=== PATIENT | male | born 1990 | race American Indian/Alaskan Native ===

== ENCOUNTER 2020-03-05 02:59 | Inpatient (IN) | payer SELFPAY ==
[2020-03-05 03:58] LABS: Basophils # (Auto) 0.1 K/mm3 (0.0-0.1); Basophils % (Auto) 0.9 % (0.0-1.8); Eosinophils # (Auto) 0.2 K/mm3 (0.0-0.4); Eosinophils % (Auto) 1.8 % (0.0-4.3); Hematocrit 43.1 % (35.5-45.6); Hemoglobin 14.9 gm/dl (11.8-15.2); Lymphocytes # (Auto) 2.9 K/mm3 (1.2-5.4); Lymphocytes % (Auto) 28.3 % (13.4-35.0); Mean Corpuscular HGB Conc 34 % (32-34); Mean Corpuscular Volume 93 fl (84-94); Monocytes # (Auto) 0.7 K/mm3 (0.0-0.8); Monocytes % (Auto) 7.3 % (0.0-7.3); Platelet Count 260 K/mm3 (140-440); Red Blood Count 4.62 M/mm3 (3.65-5.03); Red Cell Distribution Width 15.5 % (13.2-15.2)
[2020-03-05 04:06] LABS: BUN/Creatinine Ratio 8; Blood Urea Nitrogen 6 mg/dL (9-20); Calcium 9.2 mg/dL (8.4-10.2); Hemolysis Index 5
--- NOTE | 2020-03-05 04:12 | Emergency Department Report ---
ED GI Bleed HPI - General Chief complaint: GI Bleed Stated complaint: RECTAL BLEEDING Time Seen by Provider: 03/05/20 04:08 Source: patient Mode of arrival: Ambulatory Limitations: No Limitations - History of Present Illness Initial comments: Patient is a 30-year-old male that presents emergency room with complaints of bright red blood per rectum. Patient states that he has been having melena for about 6 months. Patient states that tonight he had a large amount of bright red blood come from his rectum while laying in bed. Patient states that it went down his legs and stained his sheets dramatically. Patient states he is having epigastric pain. Patient states he consumes alcohol every day. Patient states he has not been seen for his melena has been going on for 6 months by GI or primary care. 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 Patient states it is a 1-2 out of 10. Patient denies rectal pain. -: Sudden Location: epigastric Radiation: none Severity scale (0 -10): 2 Quality: burning Consistency: constant Improves with: rest Worsens with: eating, other Context: alcohol abuse Associated Symptoms: abdominal pain. denies: nausea, vomiting, epistaxis, fever/chills, headaches, loss of appetite, malaise, easy bruising, rash, shortne ss of breath, syncope, weakness - Related Data Allergies Allergy/AdvReac Type Severity Reaction Status Date / Time No Known Allergies Allergy Verified 03/05/20 05:05 ED Review of Systems ROS: Stated complaint: RECTAL BLEEDING Other details as noted in HPI Constitutional: denies: chills, fever Eyes: denies: eye pain, eye discharge, vision change ENT: denies: ear pain, throat pain Respiratory: denies: cough, shortness of breath, wheezing Cardiovascular: denies: chest pain, palpitations Endocrine: no symptoms reported Gastrointestinal: as per HPI, abdominal pain, melena, other. denies: nausea, diarrhea Genitourinary: denies: urgency, dysuria Musculoskeletal: denies: back pain, joint swelling, arthralgia Skin: denies: rash, lesions Neurological: denies: headache, weakness, paresthesias Psychiatric: denies: anxiety, depression Hematological/Lymphatic: denies: easy bleeding, easy bruising ED Past Medical Hx - Past Medical History Previous Medical History?: No - Surgical History Past Surgical History?: No - Family History Family history: no significant - Social History Smoking Status: Current Every Day Smoker Substance Use Type: Alcohol, Marijuana ED Physical Exam - General Limitations: No Limitations General appearance: alert, in no apparent distress - Head Head exam: Present: atraumatic, normocephalic - Eye Eye exam: Present: normal appearance - ENT ENT exam: Present: mucous membranes moist - Neck Neck exam: Present: normal inspection - Respiratory Respiratory exam: Present: normal lung sounds bilaterally. Absent: respiratory distress - Cardiovascular Cardiovascular Exam: Present: regular rate, normal rhythm. Absent: systolic murmur, diastolic murmur, rubs, gallop - GI/Abdominal GI/Abdominal exam: Present: soft, normal bowel sounds. Absent: distended, tenderness, guarding - Rectal Rectal exam: Present: normal rectal tone, heme (+) stool, black stool, bloody stool - Extremities Exam Extremities exam: Present: normal inspection - Back Exam Back exam: Present: normal inspection - Neurological Exam Neurological exam: Present: alert, oriented X3 - Psychiatric Psychiatric exam: Present: normal affect, normal mood - Skin Skin exam: Present: warm, dry, intact, normal color. Absent: rash ED Course Vital Signs 03/05/20 03/05/20 03:07 04:09 Temperature 98.2 F Pulse Rate 74 72 Respiratory 18 17 Rate Blood Pressure 122/77 Blood Pressure 124/94 [Right] O2 Sat by Pulse 94 97 Oximetry - Reevaluation(s) Reevaluation #1: I discussed all results with patient. I discussed plan of care with patient. Patient agrees with plan of care and admission. Patient to be admitted to the hospitalist service. 03/05/20 05:02 - Consultations Consultation #1: I discussed case with GI, Dr. BROWNING. Dr. BROWNING recommends admission to the hospitalist service and he will see the patient in the morning, n.p.o. now. 03/05/20 04:45 Consultation #2: Hospitalist consulted for admission. Hospitalist to admit patient. 03/05/20 05:02 ED Medical Decision Making - Lab Data Result diagrams: 03/05/20 03:32 03/05/20 03:32 - Medical Decision Making Patient is a 30-year-old male that presents emergency room with chronic melena this been going on for 6 months and tonight he developed copious amounts of bright red blood per rectum. Patient states that he has not seen anybody for the melena. Patient states that there was a large amount of blood. Patient had a rectal exam done and it shows melena and bright red blood and guaiac positive. Patient is labs are essentially unremarkable. GI was consulted and recommendations received. Recommendations were placed in the system. Consult was placed. Patient admitted to the hospitalist service. Patient will remain n.p.o. - Differential Diagnosis GI bleed, PRBPR, gastritis, alcoholism, abdominal pain Critical Care Time: Yes Critical care time in (mins) excluding proc time.: 35 Critical care attestation.: If time is entered above; I have spent that time in minutes in the direct care of this critically ill patient, excluding procedure time. Critical Care Time: 35 minutes ED Disposition Clinical Impression: Melena, BRBPR (bright red blood per rectum) Gastritis Qualifiers: Gastritis type: alcoholic Chronicity: acute Gastritis bleeding: with bleeding Qualified Code(s): K29.21 - Alcoholic gastritis with bleeding UTI (urinary tract infection) Qualifiers: Urinary tract infection type: acute cystitis Hematuria presence: without hematuria Qualified Code(s): N30.00 - Acute cystitis without hematuria Disposition: 09 OP ADMIT IP TO THIS HOSP Is pt being admited?: Yes Does the pt Need Aspirin: No Condition: Critical Time of Disposition: 05:03
[2020-03-05 04:18] LABS: Bilirubin,Urine NEG (Negative); Blood,Urine SM (Negative); Color,Urine Yellow (Yellow); Protein,Urine <15 mg/dL mg/dL (Negative)
[2020-03-05] MEDS ORDERED: cefTRIAXone/NS 2 GM/100 ML 2 GM/100 ML BAG IV ONE ×2 (05:01→10:47)
[2020-03-05 05:19] LABS: Alanine Aminotransferase 12 units/L (7-56); Albumin 4.5 g/dL (3.9-5)
[2020-03-05 05:24] LABS: Bilirubin,Direct < 0.2 mg/dL (0-0.2)
[2020-03-05 05:26] LABS: Partial Thromboplastin Time 37.4 Sec. (24.2-36.6)
[2020-03-05] MEDS ORDERED: PANTOPRAZOLE 80 MG in SODIUM CHLORIDE 0.9% 100 ML IV SCH (06:00)
[2020-03-05] MEDS ORDERED: SODIUM CHLORIDE 0.9% 1000 ML 1,000 ML ONE (06:11)
[2020-03-05] MEDS ORDERED: SODIUM CHLORIDE 0.9% 1000 ML 1,000 ML IV SCH (06:15)
[2020-03-05] MEDS ORDERED: ONDANSETRON 4 MG/2 ML INJ IV PRN (06:19)
[2020-03-05] MEDS ORDERED: ACETAMINOPHEN 325 MG TAB PO PRN (06:19)
--- NOTE | 2020-03-05 06:25 | History and Physical Report ---
History of Present Illness History of present illness: 30-year-old male with no medical problem comes emergency room for evaluation. He stated that he has blood per rectum tonight prompting him to come to the emergency room for evaluation. His first episode started 6 months ago and since then he has 1 episode every 2 to 3 weeks, usually with bowel movements. Tonight blood per rectum started while he was in bed. He denies melena, NSAID use. Patient will be admitted for GI bleed Review Of Systems: Constitutional: no weight loss, fever, chills Ears, eyes, nose, mouth and throat: no nasal congestion, no nasal discharge, no sinus pressure, blurry vision, diplopia Neck: No neck pain or rigidity. Cardiovascular: No palpitations, chest pain Respiratory: No shortness of breath, cough Gastrointestinal: No abdominal pain Genitourinary : no dysuria, frequency Musculoskeletal: no muscle ache , joint pain Integumentary: no rash, no pruritis Neurological: no parathesias, focal weakness Endocrine: no cold or heat intolerance, no polyuria or polydipsia Hematologic/Lymphatic: no easy bruising, no easy bleeding, no gland swelling Allergic/Immunologic: no urticaria, no angioedema. PAST MEDICAL HISTORY: None PAST SURGICAL HISTORY: None SOCIAL HISTORY: +alcohol, Deniestobacco, drugs FAMILY HISTORY: Hypertension Medications and Allergies Allergies Allergy/AdvReac Type Severity Reaction Status Date / Time No Known Allergies Allergy Verified 03/05/20 05:05 Home Medications Medication Instructions Recorded Confirmed Last Taken Type levoFLOXacin [Levaquin TAB] 500 mg PO QDAY #5 tablet 03/05/20 Unknown Rx Active Meds: Active Medications Acetaminophen (Tylenol) 650 mg PO Q4H PRN PRN Reason: Pain MILD(1-3)/Fever >100.5/GONZALEZ Pantoprazole Sodium 80 mg/ (Sodium Chloride) 100 mls @ 10 mls/hr IV DIRECT [facility] Last Admin: 03/05/20 05:48 Dose: 8 mg/hr, 10 mls/hr Documented by: Sodium Chloride (Nacl 0.9% 1000 Ml) 1,000 mls @ 150 mls/hr IV DIRECT [facility] Last Admin: 03/05/20 06:16 Dose: 150 mls/hr Documented by: Ondansetron HCl (Zofran) 4 mg IV Q8H PRN PRN Reason: Nausea And Vomiting Sodium Chloride (Sodium Chloride Flush Syringe 10 Ml) 10 ml IV BID [facility] Sodium Chloride (Sodium Chloride Flush Syringe 10 Ml) 10 ml IV PRN PRN PRN Reason: LINE FLUSH Exam - Physical Exam Narrative exam: Gen. appearance: Patient lying in bed, no apparent distress HEENT: Normocephalic, atraumatic, pupils equally round and reactive to light, extraocular movement intact, and no sclericterus,. No JVD or thyromegaly or nodule,neck supple, no carotid bruit ,mucous membranes moist, no exudate or erythema Heart: S1, S2, regular rate and rhythm Lungs: Clear bilaterally, breathing comfortable Abdomen: Positive bowel sounds, nontender, nondistended, no organomegaly Extremity: no edema, cyanosis, clubbing Skin: No rash, nodules, warm, dry Neuro: Cranial nerves II to XII intact, speech is fluent, moves extremities, sensory intact - Constitutional Vitals: Temp Pulse Resp BP Pulse Ox 98.2 F 70 15 116/74 98 03/05/20 03:07 03/05/20 05:49 03/05/20 05:49 03/05/20 05:49 03/05/20 05:49 Results - Labs CBC & Chem 7: 03/05/20 07:03 03/05/20 07:03 Labs: Abnormal lab results 03/05/20 03/05/20 03/05/20 Range/Units 03:32 03:32 04:05 RDW 15.5 H (13.2-15.2) % APTT (24.2-36.6) Sec. BUN 6 L (9-20) mg/dL Urine WBC (Auto) 21.0 H (0.0-6.0) /HPF 03/05/20 Range/Units 04:44 RDW (13.2-15.2) % APTT 37.4 H (24.2-36.6) Sec. BUN (9-20) mg/dL Urine WBC (Auto) (0.0-6.0) /HPF - Imaging and Cardiology EKG: image reviewed Assessment and Plan Assessment GI bleed Most likely secondary to hemorrhoids Patient was started on Protonix drip Check hemoglobin, consult GI UTI start IV Rocephin, follow cultures DVT prophylaxis
[2020-03-05 07:16] LABS: Basophils # (Auto) 0.1 K/mm3 (0.0-0.1); Basophils % (Auto) 0.7 % (0.0-1.8); Eosinophils # (Auto) 0.2 K/mm3 (0.0-0.4); Hematocrit 40.6 % (35.5-45.6); Hemoglobin 13.8 gm/dl (11.8-15.2); Lymphocytes # (Auto) 2.8 K/mm3 (1.2-5.4); Lymphocytes % (Auto) 30.7 % (13.4-35.0); Mean Corpuscular HGB Conc 34 % (32-34); Mean Corpuscular Volume 93 fl (84-94); Monocytes # (Auto) 0.7 K/mm3 (0.0-0.8); Monocytes % (Auto) 7.3 % (0.0-7.3); Platelet Count 244 K/mm3 (140-440); Red Blood Count 4.35 M/mm3 (3.65-5.03); Red Cell Distribution Width 15.6 % (13.2-15.2)
[2020-03-05 07:28] LABS: BUN/Creatinine Ratio 9; Blood Urea Nitrogen 6 mg/dL (9-20); Calcium 8.9 mg/dL (8.4-10.2); Hemolysis Index 8
--- NOTE | 2020-03-05 13:59 | Event Note ---
Date: 03/05/20 Patient with bright red blood per rectum. GI to see. H/H stable.
--- NOTE | 2020-03-05 14:55 | Gastroenterology Consultation ---
History of Present Illness - Reason for Consult Consult date: 03/05/20 hematochezia Requesting physician: LYNSEY HENSON III - History of Present Illness The patient is a 30 yo aam who presents with hematochezia. he has had intermittent scant hematochezia in the past every few weeks. however, had worsening dark maroon blood per rectum yesterday/overnight which led to ED arrival. Denies abd pain or constipation/straining. weight stable. no bowel habit changes. Denies family h/o colon cancer. no further bleeding episodes rest of the day and H/H has remained normal with stable vitals. Past History Past Medical History: No medical history Past Surgical History: No surgical history Social history: no significant social history Medications and Allergies Allergies Allergy/AdvReac Type Severity Reaction Status Date / Time No Known Allergies Allergy Verified 03/05/20 05:05 Home Medications Medication Instructions Recorded Confirmed Last Taken Type No Known Home Medications [No 03/05/20 03/05/20 Unknown History Reported Home Medications] Active Meds: Active Medications Acetaminophen (Tylenol) 650 mg PO Q4H PRN PRN Reason: Pain MILD(1-3)/Fever >100.5/GONZALEZ Pantoprazole Sodium 80 mg/ (Sodium Chloride) 100 mls @ 10 mls/hr IV DIRECT S Last Admin: 03/05/20 05:48 Dose: 8 mg/hr, 10 mls/hr Documented by: Sodium Chloride (Nacl 0.9% 1000 Ml) 1,000 mls @ 150 mls/hr IV DIRECT [facility] Last Admin: 03/05/20 06:16 Dose: 150 mls/hr Documented by: Ceftriaxone Sodium (Rocephin/Ns 1 Gm/50 Ml) 1 gm in 50 mls @ 100 mls/hr IV Q24HR [facility]; Protocol Last Admin: 03/05/20 10:55 Dose: 100 mls/hr Documented by: Ondansetron HCl (Zofran) 4 mg IV Q8H PRN PRN Reason: Nausea And Vomiting Sodium Chloride (Sodium Chloride Flush Syringe 10 Ml) 10 ml IV BID [facility] Last Admin: 03/05/20 10:55 Dose: 10 ml Documented by: Sodium Chloride (Sodium Chloride Flush Syringe 10 Ml) 10 ml IV PRN PRN PRN Reason: LINE FLUSH Reviewed/updated patient's home and current meds Review of Systems - Review of Systems All systems: negative (per HPI) Exam - Constitutional Vital Signs: Temp Pulse Resp BP Pulse Ox 98.2 F 77 21 109/61 97 03/05/20 03:07 03/05/20 10:00 03/05/20 10:00 03/05/20 10:00 03/05/20 10:00 General appearance: no acute distress - EENT Eyes: PERRL, EOM intact - Respiratory Respiratory effort: normal Respiratory: bilateral: CTA - Cardiovascular Rhythm: regular Heart Sounds: Present: S1 & S2 - Gastrointestinal General gastrointestinal: Present: soft, non-tender, non-distended - Integumentary Integumentary: Present: clear, warm - Neurologic Neurological: alert and oriented x3 - Psychiatric Psychiatric: appropriate mood/affect - Labs CBC & Chem 7: 03/05/20 07:03 03/05/20 07:03 Lab Results: Laboratory Results - last 24 hr 03/05/20 03/05/20 03/05/20 03:32 03:32 04:05 WBC 10.3 RBC 4.62 Hgb 14.9 Hct 43.1 MCV 93 MCH 32 MCHC 34 RDW 15.5 H Plt Count 260 Lymph % (Auto) 28.3 [place] % (Auto) 7.3 Eos % (Auto) 1.8 Baso % (Auto) 0.9 Lymph # 2.9 [place] # 0.7 Eos # 0.2 Baso # 0.1 Seg Neutrophils % 61.7 Seg Neutrophils # 6.4 PT INR APTT Sodium 138 Potassium 3.6 Chloride 99.5 Carbon Dioxide 22 Anion Gap 20 BUN 6 L Creatinine 0.8 Estimated GFR > 60 BUN/Creatinine Ratio 8 Glucose 88 Calcium 9.2 Total Bilirubin Direct Bilirubin Indirect Bilirubin AST ALT Alkaline Phosphatase Total Protein Albumin Albumin/Globulin Ratio Urine Color Yellow Urine Turbidity Clear Urine pH 5.0 Ur Specific [place] 1.014 Urine Protein <15 mg/dl Urine Glucose (UA) Neg Urine Ketones Neg Urine Blood Sm Urine Nitrite Neg Urine Bilirubin Neg Urine Urobilinogen 2.0 Ur Leukocyte Esterase Tr Urine WBC (Auto) 21.0 H Urine RBC (Auto) 4.0 Blood Type Antibody Screen 03/05/20 03/05/20 03/05/20 04:44 04:44 04:48 WBC RBC Hgb Hct MCV MCH MCHC RDW Plt Count Lymph % (Auto) [place] % (Auto) Eos % (Auto) Baso % (Auto) Lymph # [place] # Eos # Baso # Seg Neutrophils % Seg Neutrophils # PT 13.0 INR 1.00 APTT 37.4 H Sodium Potassium Chloride Carbon Dioxide Anion Gap BUN Creatinine Estimated GFR BUN/Creatinine Ratio Glucose Calcium Total Bilirubin 0.40 Direct Bilirubin < 0.2 Indirect Bilirubin 0.2 AST 23 ALT 12 Alkaline Phosphatase 73 Total Protein 7.9 Albumin 4.5 Albumin/Globulin Ratio 1.3 Urine Color Urine Turbidity Urine pH Ur Specific [place] Urine Protein Urine Glucose (UA) Urine Ketones Urine Blood Urine Nitrite Urine Bilirubin Urine Urobilinogen Ur Leukocyte Esterase Urine WBC (Auto) Urine RBC (Auto) Blood Type O NEGATIVE Antibody Screen Negative 03/05/20 03/05/20 07:03 07:03 WBC 9.2 RBC 4.35 Hgb 13.8 Hct 40.6 MCV 93 MCH 32 MCHC 34 RDW 15.6 H Plt Count 244 Lymph % (Auto) 30.7 [place] % (Auto) 7.3 Eos % (Auto) 2.0 Baso % (Auto) 0.7 Lymph # 2.8 [place] # 0.7 Eos # 0.2 Baso # 0.1 Seg Neutrophils % 59.3 Seg Neutrophils # 5.5 PT INR APTT Sodium 138 Potassium 4.0 Chloride 103.3 Carbon Dioxide 22 Anion Gap 17 BUN 6 L Creatinine 0.7 L Estimated GFR > 60 BUN/Creatinine Ratio 9 Glucose 88 Calcium 8.9 Total Bilirubin Direct Bilirubin Indirect Bilirubin AST ALT Alkaline Phosphatase Total Protein Albumin Albumin/Globulin Ratio Urine Color Urine Turbidity Urine pH Ur Specific [place] Urine Protein Urine Glucose (UA) Urine Ketones Urine Blood Urine Nitrite Urine Bilirubin Urine Urobilinogen Ur Leukocyte Esterase Urine WBC (Auto) Urine RBC (Auto) Blood Type Antibody Screen Assessment and Plan Hematochezia - intermittent episodes in the past which increased last night. H/H has remained normal. likely outlet bleeding but other etiologies including advanced polyp/neoplasm will need to be ruled out, although lower on differe ntial. he can have colonoscopy as outpatient, instructed to f/u in 1 week in GI clinic to arrange for outpt colonoscopy as long as labs/clinical course remains stable. can d/c from gi stand point with close outpt follow-up
--- NOTE | 2020-03-05 15:59 | Discharge Summary ---
Providers - Providers Date of Admission: 03/05/20 06:19 Date of discharge: 03/05/20 Attending physician: BEATA MYRICK 03/05/20 04:59 Consult to Physician [CONS] Routine Comment: Consulting Provider: RISA BROWNING Physician Instructions: Reason For Exam: prbpr, meleliza Primary care physician: [employer] Hospitalization Condition: Fair Disposition: DC-01 TO HOME OR SELFCARE Core Measure Documentation - Palliative Care Palliative Care/ Comfort Measures: Not Applicable Exam - Constitutional Vitals: Temp Pulse Resp BP Pulse Ox 98.2 F 77 21 109/61 97 03/05/20 03:07 03/05/20 10:00 03/05/20 10:00 03/05/20 10:00 03/05/20 10:00 Plan Activity: no restrictions Diet: other (soft diet) Additional Instructions: 1.Follow up with PCP in 1 week. 2.Follow up with Dr. Keon Livingston, GI in 1 week. Follow up with: PRIMARY CARE, [Primary Care Provider] - 7 Days
[2020-03-05 16:13] VITALS: BP 130/82
[2020-03-06] MEDS ORDERED: cefTRIAXone/NS 1 GM/50 ML 1 GM/50 ML BAG IV SCH (10:00)
[2020-03-06] MEDS ORDERED: PANTOPRAZOLE 40 MG TAB PO SCH (10:00)
== END 2020-03-05 16:30 | disposition home or self-care (01) | DRG 378 ==
LOC: SUATTDRO 02:59 → ED 02:59 → 4A 06:19
PROVIDERS: ADMIT Internal Medicine; ATTEND Internal Medicine
DX: K29.21 Alcoholic gastritis with bleeding (principal); N30.00 Acute cystitis without hematuria; F17.200 Nicotine dependence, unspecified, uncomplicated; K64.9 Unspecified hemorrhoids; K92.1 Melena; Z82.49 Family history of ischemic heart disease and other diseases of the circulatory system
CPT/HCPCS: 36415; 80048; 80076; 81001; 85025; 85610; 85730; 86850; 86900; 86901; 87086; G0378; C9113; J0696; J7030